=== PATIENT | male | born 1950 | race Caucasian/White ===

== ENCOUNTER 2021-04-09 19:59 | Emergency (ER) | payer MEDICARE, BC ==
[~2021-04-09] VITALS: Ht 182.9 cm; Wt 77.1 kg
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
--- NOTE | 2021-04-09 20:39 | NUR ---
PT TAKEN TO RADIOLOGY FOR CT
[2021-04-09] MEDS ORDERED: LIDOCAINE HCL/MPF 1% 30 ML VIAL IJ ONE (20:41)
--- NOTE | 2021-04-09 20:52 | NUR ---
PATIENT RETURNED TO ROOM 04
[2021-04-09] MEDS ORDERED: HYDR-4303 PO (21:38)
[2021-04-09] MEDS ORDERED: HYDROCODONE/APAP 5/325MG TABLET ONE (21:42)
--- NOTE | 2021-04-09 21:46 | NUR ---
Patient discharged to home in stable condition. Written and verbal after care instructions given. TX and prescription given. Patient verbalizes understanding of instruction.
[2021-04-09 21:49] VITALS: BP 125/72
[2021-04-09] MEDS ORDERED: HYDROCODONE/APAP 5/325MG TABLET PO ONE (22:00)
== END 2021-04-09 21:46 | disposition home or self-care (01) ==
LOC: ER 20:02
DX: S01.111A Laceration without foreign body of right eyelid and periocular area, initial encounter (principal); S20.211A Contusion of right front wall of thorax, initial encounter; S60.00XA Contusion of unspecified finger without damage to nail, initial encounter; I10 Essential (primary) hypertension; E78.5 Hyperlipidemia, unspecified; W01.0XXA Fall on same level from slipping, tripping and stumbling without subsequent striking against object, initial encounter; Y93.02 Activity, running; Y92.89 Other specified places as the place of occurrence of the external cause; Y99.8 Other external cause status
CPT/HCPCS: 12013; 70450; 71100; 73140; 99284; J3490